=== PATIENT | male | born 1980 | race Caucasian/White ===

== ENCOUNTER 2019-09-22 11:12 | Emergency (ER) | payer SELFPAY | END 2019-09-22 12:09 | disposition home or self-care (01) | LOC: NAV ERS 11:12 | DX: R11.2 Nausea with vomiting, unspecified (principal); I10 Essential (primary) hypertension; F43.10 Post-traumatic stress disorder, unspecified; F17.210 Nicotine dependence, cigarettes, uncomplicated; Z79.899 Other long term (current) drug therapy | CPT/HCPCS: 87804; 99284 ==